=== PATIENT | male | born 1955 | race Hispanic/Latino ===

== ENCOUNTER 2016-09-13 07:00 | Emergency (ER) | payer OTHER ==
[2016-09-13 07:43] VITALS: O2SAT 98
[2016-09-13] MEDS ORDERED: Oxycodone/Acetaminophen 5/325 mg Tab PO ONE (08:01)
[2016-09-13] MEDS ORDERED: Oxycodone/Acetaminophen 5/325 mg Tab ONE (08:03)
--- NOTE | 2016-09-13 08:30 | ED PDOC ---
Lower Extremity Pain/Injury Time Seen by Provider: 09/13/16 07:32 Chief Complaint (Nursing): Lower Extremity Problem/Injury Chief Complaint (Provider): Lower Extremity Problem/Injury History Per: Patient History/Exam Limitations: no limitations Additional Complaint(s): Patient is a 61 year old male who presents to ED for evaluation of right knee pain since approximately 1430 yesterday. Patient notes that his job requires a lot of walking and pulling heavy objects, believes he may have put to much pressure on his knee. Denies any blunt injury or falls. States he took Tylenol without relief. Denies chest pain, SOB, calf pain, long distance travel or any history of knee pain in the past. No hormone tx. Only pain to the upper patella area. No cough. Past Medical History Reviewed: Historical Data, Nursing Documentation, Vital Signs Vital Signs: Last Vital Signs Temp Pulse Resp BP Pulse Ox 98 09/13/16 07:40 - Medical History PMH: No Chronic Diseases - Surgical History Surgical History: No Surg Hx - Family History Family History: States: Unknown Family Hx - Social History Alcohol: None Drugs: Denies - Home Medications Home Medications: Ambulatory Orders Medication Instructions Recorded Ibuprofen [Motrin] 600 mg PO TID 7 Days 09/13/16 - Allergies Allergies/Adverse Reactions: Allergies Allergy/AdvReac Type Severity Reaction Status Date / Time No Known Allergies Allergy Verified 09/13/16 07:39 Wells Criteria for PE - Wells Criteria for Pulmonary Embolism Clinical Signs and Symptoms of DVT: No P.E is #1 Diagnosis, or Equally Likely: No Heart Rate >100: No Immobilization at least 3 days;Surgery previous 4 weeks: No Previous, objectively diagnosed PE or DVT: No Hemoptysis: No Malignancy w/treatment within 6 months, or palliative: No Total Score: 0 Review of Systems Constitutional: Negative for: Fever, Chills Cardiovascular: Negative for: Chest Pain, Palpitations, Light Headedness Respiratory: Negative for: Shortness of Breath Gastrointestinal: Negative for: Nausea, Vomiting Musculoskeletal: Positive for: Leg Pain. Negative for: Back Pain, Foot Pain Skin: Negative for: Bruising Neurological: Negative for: Weakness, Numbness Physical Exam - Reviewed Nursing Documentation Reviewed: Yes Vital Signs Reviewed: Yes - Physical Exam Appears: Positive for: Non-toxic, No Acute Distress Skin: Positive for: Normal Color, Warm Eye Exam: Positive for: Normal appearance Neck: Positive for: Normal, Painless ROM, Supple Cardiovascular/Chest: Positive for: Regular Rate, Rhythm. Negative for: Murmur Respiratory: Positive for: Normal Breath Sounds. Negative for: Respiratory Distress Pulses-Dorsalis Pedis (R): 2+ (2+ popliteal pulse R) Back: Positive for: Normal Inspection. Negative for: L CVA Tenderness, R CVA Tenderness Extremity: Positive for: Normal ROM, Tenderness (Right knee: (+) mild upper patella tenderness (-) deformity. (-) popliteal tenderness; no joint laxity). Negative for: Pedal Edema, Calf Tenderness, Deformity, Swelling Neurologic/Psych: Positive for: Alert, Oriented. Negative for: Motor/Sensory Deficits - ECG O2 Sat by Pulse Oximetry: 98 (RA) Pulse Ox Interpretation: Normal - Radiology X-Ray: Interpreted by Me, Viewed By Me X-Ray Interpretation: No Acute Disease - Progress ED Course And Treament: 937: Stable. AAOx3. Pain free. Ambulated with no issues. FU with pcp. Medical Decision Making Medical Decision Making: Time: 0750 Initial impression: Knee pain Initial plan: -- Knee Xray -- Motrin PO and Percocet PO Scribe Attestation: Documented by Tabitha Rodas acting as a scribe for Abilio Haas MD MD Scribe Attestation: All medical record entries made by the Scribe were at my direction and personally dictated by me. I have reviewed the chart and agree that the record accurately reflects my personal performance of the history, physical exam, medical decision making, and the department course for this patient. I have also personally directed, reviewed, and agree with the discharge instructions and disposition. Disposition - Clinical Impression Clinical Impression: Knee injury - Patient ED Disposition Is Patient to be Admitted: No Counseled Patient/Family Regarding: Studies Performed, Diagnosis, Need For Followup, Rx Given - Disposition Referrals: Bret Borges MD [Family Provider] - 09/14/16 Disposition: Routine/Home Disposition Time: 09:37 Condition: STABLE Additional Instructions: Return if not better in 3 days. Prescriptions: Ibuprofen [Motrin] 600 mg PO TID 7 Days Instructions: Knee Pain (ED) Forms: [employer] (Turkmen)
--- NOTE | 2016-09-13 13:29 | RAD ---
PROCEDURE: Right Knee Radiographs. HISTORY: Pain. No history of recent/ related trauma provided COMPARISON: None. FINDINGS: BONES: Normal. No fracture. JOINTS: Normal. No osteoarthritis. JOINT EFFUSION: None. OTHER FINDINGS: None. IMPRESSION: No significant or acute findings to account for/ related to the clinical presentation.
== END 2016-09-13 10:31 | disposition home or self-care (01) ==
LOC: H.ER 07:00
DX: S89.91XA Unspecified injury of right lower leg, initial encounter (principal); X50.0XXA Overexertion from strenuous movement or load, initial encounter; Y92.9 Unspecified place or not applicable; Y99.0 Civilian activity done for income or pay

== ENCOUNTER 2016-09-15 13:36 | Emergency (ER) | payer OTHER ==
[2016-09-15 13:54] VITALS: BP 127/72; PULSE 55; RESP 20; TEMP 98.3; O2SAT 100
--- NOTE | 2016-09-15 15:38 | ED PDOC ---
Lower Extremity Pain/Injury Time Seen by Provider: 09/15/16 13:45 Chief Complaint (Nursing): Lower Extremity Problem/Injury Chief Complaint (Provider): Continued right knee pain History Per: Patient History/Exam Limitations: no limitations Onset/Duration Of Symptoms: Days Current Symptoms Are (Timing): Still Present Severity: Moderate Pain Scale Rating Of: 6 Additional Complaint(s): PT states he has been taking motrin at home but it is not helping much. Pt reports being seen 09/10 and XR normal. Pt states he saw PCP who was unable to look at his XR off the CD. Pt reports no new injury or trauma. Pt states at work a few days ago he has gradual onset of right knee pain. Past Medical History Reviewed: Historical Data, Nursing Documentation, Vital Signs Vital Signs: Last Vital Signs Temp 98.3 F 09/15/16 13:49 Pulse 55 L 09/15/16 13:49 Resp 20 09/15/16 13:49 BP 127/72 09/15/16 13:49 Pulse Ox 100 09/15/16 13:49 - Medical History PMH: No Chronic Diseases - Surgical History Surgical History: No Surg Hx - Family History Family History: States: Unknown Family Hx - Living Arrangements Living Arrangements: With Family - Social History Current smoker - smoking cessation education provided: No Alcohol: None Drugs: Denies - Home Medications Home Medications: Ambulatory Orders Medication Instructions Recorded Ibuprofen [Motrin] 600 mg PO TID 7 Days 09/13/16 traMADol [Ultram] 50 mg PO Q6H PRN #15 tab 09/15/16 - Allergies Allergies/Adverse Reactions: Allergies Allergy/AdvReac Type Severity Reaction Status Date / Time No Known Allergies Allergy Verified 09/15/16 13:49 Review of Systems ROS Statement: Except As Marked, All Systems Reviewed And Found Negative Musculoskeletal: Positive for: Leg Pain (Right knee ) Physical Exam - Reviewed Nursing Documentation Reviewed: Yes Vital Signs Reviewed: Yes - Physical Exam Appears: Positive for: Well, Non-toxic, No Acute Distress Head Exam: Positive for: ATRAUMATIC, NORMAL INSPECTION, NORMOCEPHALIC Skin: Positive for: Normal Color, Warm, DRY Eye Exam: Positive for: Normal appearance ENT: Positive for: Normal ENT Inspection Neck: Positive for: Normal, Painless ROM Cardiovascular/Chest: Positive for: Regular Rate, Rhythm Respiratory: Positive for: Normal Breath Sounds. Negative for: Accessory Muscle Use, Respiratory Distress Back: Negative for: Normal Inspection (Decreased due to pain ) Extremity: Positive for: Normal ROM Neurologic/Psych: Positive for: Alert, Oriented - ECG O2 Sat by Pulse Oximetry: 100 Medical Decision Making Medical Decision Making: CT: OA Disposition - Clinical Impression Clinical Impression: Osteoarthritis, knee - Patient ED Disposition Is Patient to be Admitted: No Counseled Patient/Family Regarding: Diagnosis, Need For Followup, Rx Given - Disposition Referrals: [facility] [Outside] Jose Raul Salinas III, MD [Staff Provider] - Disposition: Routine/Home Disposition Time: 16:45 Condition: GOOD Prescriptions: traMADol [Ultram] 50 mg PO Q6H PRN #15 tab PRN Reason: Pain Instructions: Osteoarthritis (ED)
--- NOTE | 2016-09-15 16:40 | CT ---
PROCEDURE: CT right knee HISTORY: knee pain, normal XR, return to ER COMPARISON: Not available TECHNIQUE: 2.5 mm contiguous axial sections were acquired through the right knee. Sagittal and coronal images were reformatted from the axial scan. FINDINGS: There is no evidence of fracture. There is mild tricompartmental osteoarthritis, most pronounced involving the medial joint compartment. There are no articular erosions. There is no joint effusion. There is a very small bone island of the lateral femoral condyle. IMPRESSION: No acute fracture. Mild tricompartmental osteoarthritis.
== END 2016-09-15 16:51 | disposition home or self-care (01) ==
LOC: H.ER 13:36
DX: M17.11 Unilateral primary osteoarthritis, right knee (principal)